=== PATIENT | male | born 1950 | race Caucasian/White ===

== ENCOUNTER 2023-02-28 12:48 | Outpatient (CLI) | payer MEDICARE, SELFPAY | END 2023-02-28 12:49 | disposition home or self-care (01) | PROVIDERS: Visit Provider Internal Medicine | DX: C61 Malignant neoplasm of prostate; C79.51 Secondary malignant neoplasm of bone; C77.9 Secondary and unspecified malignant neoplasm of lymph node, unspecified | CPT/HCPCS: 72197; A9575 ==

== ENCOUNTER 2023-10-27 14:13 | Outpatient (CLI) | payer MEDICARE, SELFPAY | END 2023-10-27 14:14 | disposition home or self-care (01) | LOC: MRI 14:14 | PROVIDERS: PCP Internal Medicine; Visit Provider Physician Assistant | DX: C79.51 Secondary malignant neoplasm of bone (principal) | CPT/HCPCS: 72197; A9575 ==

== ENCOUNTER 2024-10-23 10:28 | Outpatient (CLI) | payer MEDICARE, SELFPAY | END 2024-10-23 10:29 | disposition home or self-care (01) | PROVIDERS: PCP Internal Medicine; Visit Provider Nurse Practitioner Family | DX: N30.41 Irradiation cystitis with hematuria (principal); K62.7 Radiation proctitis; C61 Malignant neoplasm of prostate; I34.1 Nonrheumatic mitral (valve) prolapse; Y84.2 Radiological procedure and radiotherapy as the cause of abnormal reaction of the patient, or of later complication, without mention of misadventure at the time of the procedure; J93.83 Other pneumothorax | CPT/HCPCS: 71046; G0463 ==

== ENCOUNTER 2024-11-28 08:02 | Outpatient (CLI) | payer MEDICARE, SELFPAY | END 2024-11-28 08:03 | disposition home or self-care (01) | LOC: WOUND 08:04 | PROVIDERS: PCP Internal Medicine; Visit Provider Nurse Practitioner Family | DX: N30.41 Irradiation cystitis with hematuria (principal); L59.8 Other specified disorders of the skin and subcutaneous tissue related to radiation; K62.7 Radiation proctitis; Y84.2 Radiological procedure and radiotherapy as the cause of abnormal reaction of the patient, or of later complication, without mention of misadventure at the time of the procedure | CPT/HCPCS: G0277; G0463 ==

== ENCOUNTER 2024-12-09 08:00 | Outpatient (RCR) | payer MEDICARE, SELFPAY | END 2024-12-09 23:59 | disposition home or self-care (01) | LOC: WOUND 08:00 | PROVIDERS: PCP Internal Medicine; Visit Provider Nurse Practitioner Family | DX: N30.41 Irradiation cystitis with hematuria (principal); L59.8 Other specified disorders of the skin and subcutaneous tissue related to radiation; C61 Malignant neoplasm of prostate; K62.7 Radiation proctitis; I34.1 Nonrheumatic mitral (valve) prolapse; T70.0XXA Otitic barotrauma, initial encounter; H92.02 Otalgia, left ear; R09.89 Other specified symptoms and signs involving the circulatory and respiratory systems; Y84.2 Radiological procedure and radiotherapy as the cause of abnormal reaction of the patient, or of later complication, without mention of misadventure at the time of the procedure; Z53.8 Procedure and treatment not carried out for other reasons | CPT/HCPCS: G0277; G0463 ==

== ENCOUNTER 2024-12-24 10:25 | Outpatient (CLI) | payer MEDICARE, SELFPAY | END 2024-12-24 10:26 | disposition home or self-care (01) | LOC: WOUND 10:26 | PROVIDERS: PCP Internal Medicine; Visit Provider Nurse Practitioner Family | DX: L59.8 Other specified disorders of the skin and subcutaneous tissue related to radiation (principal); C61 Malignant neoplasm of prostate; N30.41 Irradiation cystitis with hematuria; K62.7 Radiation proctitis; Y84.2 Radiological procedure and radiotherapy as the cause of abnormal reaction of the patient, or of later complication, without mention of misadventure at the time of the procedure | CPT/HCPCS: G0277; G0463 ==

== ENCOUNTER 2025-01-08 08:00 | Outpatient (RCR) | payer MEDICARE, SELFPAY ==
[2024-12-27 08:30] LABS: Appearance Urine Clear (Clear); Bilirubin Urine Negative (Negative); Blood Urine Negative (Negative); Color Urine Yellow (Yellow); Glucose Urine Negative (Negative); Ketones Urine Negative (Negative); Leukocyte Esterase Urine Negative (Negative); Nitrite Urine Negative (Negative); Protein Urine Negative (Negative); Specific Gravity Urine 1.015 (1.000-1.030); Urobilinogen Urine 0.2 (0.2-1.0)
[2024-12-27 08:50] LABS: RBC Urine 0-2 (0-2)
== END 2025-01-08 23:59 | disposition home or self-care (01) ==
LOC: WOUND 08:00
PROVIDERS: PCP Internal Medicine; Visit Provider Nurse Practitioner Family
DX: N30.41 Irradiation cystitis with hematuria (principal); K62.7 Radiation proctitis; L59.8 Other specified disorders of the skin and subcutaneous tissue related to radiation; Y84.2 Radiological procedure and radiotherapy as the cause of abnormal reaction of the patient, or of later complication, without mention of misadventure at the time of the procedure
CPT/HCPCS: 81001; G0277

== ENCOUNTER 2025-01-23 08:04 | Outpatient (CLI) | payer MEDICARE, SELFPAY | END 2025-01-23 08:05 | disposition home or self-care (01) | LOC: WOUND 08:04 | PROVIDERS: PCP Internal Medicine; Visit Provider Nurse Practitioner Family | DX: N30.41 Irradiation cystitis with hematuria (principal); K62.7 Radiation proctitis; L59.8 Other specified disorders of the skin and subcutaneous tissue related to radiation; Y84.2 Radiological procedure and radiotherapy as the cause of abnormal reaction of the patient, or of later complication, without mention of misadventure at the time of the procedure | CPT/HCPCS: G0277; G0463 ==

== ENCOUNTER 2025-01-24 08:00 | Outpatient (RCR) | payer MEDICARE, SELFPAY | END 2025-02-08 23:59 | disposition home or self-care (01) | LOC: WOUND 08:00 | PROVIDERS: PCP Internal Medicine; Visit Provider Nurse Practitioner Family | DX: N30.41 Irradiation cystitis with hematuria (principal); K62.7 Radiation proctitis; L59.8 Other specified disorders of the skin and subcutaneous tissue related to radiation; C61 Malignant neoplasm of prostate; Y84.2 Radiological procedure and radiotherapy as the cause of abnormal reaction of the patient, or of later complication, without mention of misadventure at the time of the procedure | CPT/HCPCS: G0277 ==